=== PATIENT | female | born 1985 | race Caucasian/White ===

== ENCOUNTER 2017-12-26 12:31 | Emergency (ER) | payer MEDICAID ==
[~2017-12-26] VITALS: Ht 162.6 cm; Wt 59.8 kg
[~2017-12-26 12:31] MED LIST: BUSP5TAB3 PO; DEXT1LOZ PO; ENOX100S3 SQ; HYDR-3965 PO; HYDR-569 PO; ONDA4TAB6 PO; ONDA8TAB9 PO; PHEN-873 PO
[2017-12-26] MEDS ORDERED: ondansetron/PF 4mg/2ml inj IV ONE (12:45)
[2017-12-26] MEDS ORDERED: normal saline 1000ML IV soln IVB ONE (12:45)
[2017-12-26 13:05] LABS: URINE HCG NEGATIVE (NEG)
[2017-12-26 13:08] LABS: CLARITY,URINE CLOUDY (Clear); COLOR,URINE YELLOW (Yellow); GLUCOSE, URINE NEGATIVE (Neg); KETONES,URINE >=80 mg/dl (Neg); LEUKOCYTE ESTERASE ,URINE NEGATIVE (Neg); NITRITES, URINE NEGATIVE (Neg); OCCULT BLOOD,URINE NEGATIVE (Neg); PROTEIN,URINE 30 mg/dl (Neg); UA COLLECTION TYPE CLN CATCH MIDSTREAM
[2017-12-26 13:10] LABS: BASOPHILS % (AUTO) 0.3 % (0-1); EOSINOPHILS # (AUTO) 0.1 X10'3 (0-0.9); EOSINOPHILS % (AUTO) 1.3 % (0-6); HEMATOCRIT 40.1 % (35.0-45.0); HEMOGLOBIN 14.1 g/dl (12.0-16.0); LYMPHOCYTES # (AUTO) 2.1 X10'3 (1.1-4.8); LYMPHOCYTES % (AUTO) 19.9 % (21-51); MEAN CORPUSCULAR HEMOGLOBIN 30.3 PG (27.0-31.0); MEAN CORPUSCULAR HGB CONC 35.1 % (33.0-36.5); MEAN CORPUSCULAR VOLUME 86.4 FL (78-98); MEAN PLATELET VOLUME 8.7 FL (7.4-10.4); MONOCYTES # (AUTO) 0.4 X10'3 (0-0.9); NEUTROPHILS # (AUTO) 7.8 X10'3 (1.8-7.7); NEUTROPHILS % (AUTO) 74.5 % (42-75); PLATELET COUNT 221 X10'3 (140-440); RED BLOOD COUNT 4.64 X10'6 (4.20-5.60); RED CELL DISTRIBUTION WIDTH 13.7 % (11.5-14.5); WHITE BLOOD COUNT 10.4 X10'3 (4.5-11.0)
[2017-12-26 13:15] LABS: MUCUS STRANDS MODERATE /LPF (Neg); SQUAMOUS EPITHELIAL CELL,UR MANY /LPF (FEW)
[2017-12-26 13:16] LABS: BACTERIA,URINE 2+ /HPF (Neg); RBC,URINE 0-2 /HPF (0-2); WBC,URINE 0-4 /HPF (0-4)
[2017-12-26 13:28] LABS: ALANINE AMINOTRANSFERASE 21 U/L (12-78); ALBUMIN 4.8 G/DL (3.4-5.0); ALBUMIN/GLOBULIN RATIO 1.4 (1.1-1.5); ALKALINE PHOSPHATASE 44 IU/L (46-116); ANION GAP 13 (8-16); ASPARTATE AMINO TRANSFERASE 12 U/L (10-37); BILIRUBIN,TOTAL 1.5 MG/DL (0.1-1.0); BLOOD UREA NITROGEN 10 MG/DL (7-18); BUN/CREATININE RATIO 14.5 (6.6-38.0); CALCIUM 9.5 MG/DL (8.5-10.1); CHLORIDE 101 MMOL/L (99-107); CREATININE 0.69 MG/DL (0.40-0.90); GLUCOSE 114 MG/DL (70-104); LIPASE 499 U/L (73-393); POTASSIUM 3.7 MMOL/L (3.5-5.1); SODIUM 140 MMOL/L (135-145); TOTAL CARBON DIOXIDE 25.7 MMOL/L (24-32); TOTAL PROTEIN 8.2 G/DL (6.4-8.2); eGFR > 90 ML/MIN
[2017-12-26] MEDS ORDERED: proCHLORperazine 10 MG/2 ml inj IV ONE (13:50)
[2017-12-26] MEDS ORDERED: ONDA4TAB9 SL (17:11)
[2017-12-26] MEDS ORDERED: HYDR-569 PO (17:11)
[2017-12-26 17:20] VITALS: BP 117/71
== END 2017-12-26 17:22 | disposition home or self-care (01) ==
LOC: ER 12:32
DX: K85.90 Acute pancreatitis without necrosis or infection, unspecified (principal); I10 Essential (primary) hypertension; G43.909 Migraine, unspecified, not intractable, without status migrainosus; F12.10 Cannabis abuse, uncomplicated; Z88.1 Allergy status to other antibiotic agents; Z88.0 Allergy status to penicillin; Z88.2 Allergy status to sulfonamides; Z88.8 Allergy status to other drugs, medicaments and biological substances
CPT/HCPCS: 36415; 74181; 76700; 80053; 80320; 81001; 81025; 83690; 85025; 96361; 96374; 96375; 99285; J0780; J2405; J7030

== ENCOUNTER 2019-04-03 12:27 | Emergency (ER) | payer MEDICAID ==
[~2019-04-03] VITALS: Ht 162.6 cm; Wt 54.0 kg
[~2019-04-03 12:27] MED LIST changes: +HYDR-4383 PO; +PHEN-786 PO; -PHEN-873 PO
[2019-04-03] MEDS ORDERED: normal saline 1000ML IV soln IVB ONE ×2 (13:50→14:05)
[2019-04-03] MEDS ORDERED: morphine 4 MG/ML inj SYRINge IV ONE (13:50)
[2019-04-03] MEDS ORDERED: normal saline 1000ml 1,000 ML IV ONE (14:03)
[2019-04-03] MEDS ORDERED: proCHLORperazine 10 MG/2 ml inj IV ONE (14:05)
[2019-04-03 14:15] LABS: BASOPHILS % (AUTO) 0.5 % (0-1); EOSINOPHILS % (AUTO) 0.1 % (0-6); HEMATOCRIT 39.6 % (35.0-45.0); HEMOGLOBIN 13.6 g/dl (12.0-16.0); LYMPHOCYTES # (AUTO) 0.9 X10'3 (1.1-4.8); LYMPHOCYTES % (AUTO) 10.7 % (21-51); MEAN CORPUSCULAR HEMOGLOBIN 30.5 PG (27.0-31.0); MEAN CORPUSCULAR HGB CONC 34.3 g/dL (33.0-36.5); MEAN CORPUSCULAR VOLUME 88.9 FL (78-98); MEAN PLATELET VOLUME 9.2 FL (7.4-10.4); MONOCYTES # (AUTO) 0.4 X10'3 (0-0.9); MONOCYTES % (AUTO) 4.4 % (2-12); NEUTROPHILS # (AUTO) 7.4 X10'3 (1.8-7.7); NEUTROPHILS % (AUTO) 84.3 % (42-75); PLATELET COUNT 187 X10'3 (140-440); RED BLOOD COUNT 4.45 X10'6 (4.20-5.60); RED CELL DISTRIBUTION WIDTH 13.4 % (11.5-14.5); WHITE BLOOD COUNT 8.8 X10'3 (4.5-11.0)
[2019-04-03 14:27] LABS: PARTIAL THROMBOPLASTIN TIME 27 SECONDS (22-32)
[2019-04-03 14:30] LABS: ALANINE AMINOTRANSFERASE 23 U/L (12-78); ALBUMIN 3.9 G/DL (3.4-5.0); ALBUMIN/GLOBULIN RATIO 1.3 (1.1-1.5); ALKALINE PHOSPHATASE 43 IU/L (46-116); ANION GAP 8 (8-16); ASPARTATE AMINO TRANSFERASE 10 U/L (10-37); BILIRUBIN,TOTAL 0.5 MG/DL (0.1-1.0); BLOOD UREA NITROGEN 4 MG/DL (7-18); BUN/CREATININE RATIO 6.3 (6.6-38.0); CALCIUM 8.8 MG/DL (8.5-10.1); CHLORIDE 108 MMOL/L (99-107); CREATININE 0.64 MG/DL (0.40-0.90); GLUCOSE 91 MG/DL (70-104); POTASSIUM 4.2 MMOL/L (3.5-5.1); SODIUM 142 MMOL/L (135-145); TOTAL CARBON DIOXIDE 26.3 MMOL/L (24-32); TOTAL PROTEIN 6.9 G/DL (6.4-8.2); eGFR > 90 ML/MIN
[2019-04-03 14:32] LABS: ETHANOL < 0.010 GM/DL (0.0-0.010); LIPASE 110 U/L (73-393); MAGNESIUM 1.7 MG/DL (1.5-2.4)
[2019-04-03 15:56] LABS: URINE HCG NEGATIVE (NEG)
[2019-04-03 16:09] LABS: URINE AMPHETAMINE SCREEN NEGATIVE (Neg); URINE BARBITUATE SCREEN NEGATIVE (Neg); URINE BENZODIAZEPINES SCREEN NEGATIVE (Neg); URINE CANNABINOID SCREEN POSITIVE (Neg); URINE COCAINE SCREEN NEGATIVE (Neg); URINE METHADONE SCREEN NEGATIVE (Neg); URINE OPIATE SCREEN POSITIVE (Neg); URINE PHENCYCLIDINE SCREEN NEGATIVE (Neg)
[2019-04-03 16:30] VITALS: BP 97/59
[2019-04-03] MEDS ORDERED: SUMAtriptan succ. 6 MG/0.5ml vial SQ ONE (16:35)
[2019-04-03] MEDS ORDERED: PROC25SU30 PO (16:36)
--- NOTE | 2019-04-03 16:48 | NUR ---
Attempted to medicate and discharge pt. When I walked into pt room and IV was lying on the bed, and the pt was not in room. Per EVS, he saw the pt ambulate out of ED with steady gait.
== END 2019-04-03 16:53 | disposition home or self-care (01) ==
LOC: ER 12:27
DX: G43.909 Migraine, unspecified, not intractable, without status migrainosus (principal); R11.2 Nausea with vomiting, unspecified; I10 Essential (primary) hypertension; R79.1 Abnormal coagulation profile; F12.90 Cannabis use, unspecified, uncomplicated; Z98.890 Other specified postprocedural states; Z88.0 Allergy status to penicillin; Z88.2 Allergy status to sulfonamides; Z88.1 Allergy status to other antibiotic agents; Z88.8 Allergy status to other drugs, medicaments and biological substances; Z79.899 Other long term (current) drug therapy
CPT/HCPCS: 36415; 80053; 80305; 80320; 81025; 83690; 83735; 85025; 85610; 85730; 96361; 96374; 96375; 99283; J0780; J2270; J7030